=== PATIENT | female | born 1945 | race Two or more races ===

== ENCOUNTER 2016-10-06 13:41 | Outpatient (CLI) | payer MEDICARE, BC ==
--- NOTE | 2016-10-06 15:06 | Diagnostic Imaging Report ---
Indication:Thyroid nodules Technique: Grayscale and duplex Doppler imaging of the thyroid gland performed. Comparison: None Findings: There are multiple tiny hypoechoic and cystic nodules within the thyroid gland. The largest nodule is in the left lobe and measures approximately 1 cm. The right lobe measures 4.6 x 2.0 x 1.9 cm. Left lobe 4.2 x 1.8-1.5 cm. Impression: Slightly heterogeneous thyroid gland with multiple nodules.
== END 2016-10-06 15:41 | disposition home or self-care (01) ==
LOC: ULS 13:41
DX: E04.1 Nontoxic single thyroid nodule (principal)
CPT/HCPCS: 76536